=== PATIENT | male | born 1970 | race Caucasian/White ===

== ENCOUNTER → 2020-03-30 08:27 | Outpatient (CLI) | payer OTHER, SELFPAY ==
--- NOTE | 2020-03-30 | DI.MRI.S_ITS ---
PROCEDURE: MR SHOULDER LT WO CON INDICATIONS: LEFT SHOULDER PAIN TECHNIQUE: Noncontrast oblique coronal T2 fast spin echo with fat saturation, oblique sagittal T1 spin echo and T2 fast spin echo with fat saturation, axial T1 spin echo and T2 fast spin echo with fat saturation through the shoulder. COMPARISON: None. FINDINGS: Image quality: Excellent. Rotator cuff: Supraspinatus tendinopathy with small partial thickness bursal and articular sided tear. Infraspinatus and teres minor tendons appear intact. Subscapularis tendon appears intact. Mild diffuse fatty infiltration of the rotator cuff musculature. No atrophy identified. Bones and bursae: No bone marrow contusions or fractures. Moderate acromioclavicular joint degeneration. Acromion demonstrates conventional anatomy, without an os acromiale. Trace subacromial-subdeltoid bursitis. Capsule and soft tissues: Labrum: Blunted appearance of the posterior labrum likely reflecting advanced degeneration versus chronic tear. There is circumferential segmental sclerosis of the adjacent glenoid.. Long head of the biceps tendon intact. The rotator interval appears normal, without fibrosis. Coracohumeral ligament intact. IMPRESSION: Supraspinatus tendinopathy with small partial thickness bursal and articular sided tear at the critical zone. Blunted appearance of the posterior labrum, likely advanced degeneration and/or chronic tear. Dictated by: Oral Aguayo M.D. on 04/01/2020 at 10:03 Approved by: Oral Aguayo M.D. on 04/01/2020 at 10:24
== END ==
PROVIDERS: PCP Family Medicine; Referring Provider Family Medicine; Visit Provider Family Medicine
DX: M25.512 Pain in left shoulder (principal); M75.112 Incomplete rotator cuff tear or rupture of left shoulder, not specified as traumatic
CPT/HCPCS: 73221

== ENCOUNTER 2021-11-19 16:40 | Emergency (ER) | payer OTHER, SELFPAY ==
[2021-11-19] VITALS (10 sets, daily range): BP systolic 142–162; BP diastolic 66–96; PULSE 43–76; RESP 16–17; TEMP 35.9; O2SAT 96–99
[2021-11-19 19:47] LABS: Add Manual Diff / Slide Review NO; Basophils Absolute Auto 0 /uL (0-100); Basophils Percent Auto 0.5 % (0-2); Eosinophils Absolute Auto 300 /uL (0-450); Hematocrit 40.4 % (41-53); Hemoglobin 14.1 g/dL (13.5-17.5); Lymphocytes Absolute Auto 2000 /uL (1100-4500); Lymphocytes Percent Auto 26.2 % (25-40); Mean Corpuscular HGB Conc 34.9 % (30-36); Mean Corpuscular Hemoglobin 29.6 PG (26-34); Mean Corpuscular Volume 84.7 fL (80-100); Monocytes Absolute Auto 600 /uL (0-900); Monocytes Percent Auto 7.9 % (3-14); Neutrophils Absolute Auto 4600 /uL (1500-7000); Neutrophils Percent Auto 61.4 % (50-75); Platelet Count 285 X10^3/uL (150-400); Red Blood Cell Count 4.77 X10^6/uL (4.5-5.9); Red Cell Distribution Width 13.2 % (11.6-14.8); White Blood Cell Count 7.5 X10^3/uL (4.5-11.0)
[2021-11-19 19:50] LABS: Alanine Aminotransferase 584 IU/L (<50); Albumin 4.5 g/dL (3.5-5.0); Albumin Globulin Ratio 1.3 (1.0-2.8); Alkaline Phosphatase 94 U/L (38-126); Aspartate Aminotransferase 365 IU/L (17-59); BUN Creatinine Ratio 15.4 (6-22); Bilirubin Total 0.9 mg/dL (0.2-1.3); Blood Urea Nitrogen 12 mg/dL (9-20); Carbon Dioxide 31 mmol/L (22-32); Chloride 100 mmol/L (98-107); Estimated Glomerular Filt Rate > 60 mL/min (>60); Globulin 3.5 g/dL (1.7-4.1); Glucose 80 mg/dL (70-100); HEMOLYSIS < 15 (0-50); Lipase 84 U/L (23-300); Potassium 3.8 mmol/L (3.4-5.1); Sodium 140 mmol/L (137-145)
--- NOTE | 2021-11-19 19:59 | ED.GENADULT ---
HPI - General Adult General Chief complaint: Abdominal Pain Stated complaint: liver and pancreatic enzymes too high Time Seen by Provider: 11/19/21 19:54 Source: patient Mode of arrival: Ambulatory History of Present Illness HPI narrative: Otherwise healthy 51-year-old gentleman was working at his computer yesterday when he had the acute onset of epigastric pain at rest. It lasted for hours throughout the day. He notes that Tums offered brief relief, Tylenol helped, Gas-X provided no change. Over the course of the evening it improved enough that he was able to get some sleep with still hurting this morning was seen by provider the knee clinic. The workup done and he was told that his liver enzymes and pancreatic enzymes were elevated (access to these labs) and it was suggested he come to the ER for further evaluation. In the ER he reports continued mild epigastric/right upper quadrant pain without nausea, vomiting, diarrhea. He has no fevers, cough, chills, dyspnea. No palpitations or chest pain. He notes that he is never had gallbladder issues for cardiac issues previously. No history of reflux. Denies any recent black or bloody stools. Related Data Previous Rx's Medication Instructions Recorded oxycodone-acetaminophen 5 mg-325 1 tab PO Q6H PRN pain #10 tabs 11/19/21 mg tablet Allergies Allergy/AdvReac Type Severity Reaction Status Date / Time No Known Drug Allergies Allergy Verified 11/19/21 16:50 Review of Systems Review of Systems Narrative: Remainder of complete review of systems is otherwise unremarkable except for that included in the HPI. Patient History Social History Smoking Status: Never smoker Smoking Status: Never smoker alcohol intake frequency: other Substance Use Type: does not use Exam Initial Vital Signs Initial Vital Signs: Vital Signs Temperature 96.6 F L 11/19/21 16:48 Pulse Rate 76 11/19/21 16:48 Respiratory Rate 17 11/19/21 16:48 Blood Pressure 162/96 H 11/19/21 16:48 Pulse Oximetry 99 11/19/21 16:48 Oxygen Delivery Method 11/19/21 16:48 General: Healthy appearing, in no acute distress. Able to give a complete and coherent history. Well-nourished well-developed HEENT: Moist mucous membranes, normal sclera with reactive pupils, Neck: No JVD, supple Respiratory: Lungs are clear to auscultation, no wheezing no rales no rhonchi. Full and symmetrical air movement Cardiac: Regular rate and rhythm no murmurs no bruits Abdomen: Soft, mild tenderness in the right upper quadrant to epigastrium without rebound or guarding, good bowel tones, no flank pain Skin: Warm and dry, no rashes Neurologic: Grossly neurologically intact with no obvious asymmetries or abnormalities Extremities: No trauma, well perfused Psych: Cooperative, appropriate insight and affect Course Orders Ordered: ED Orders 11/19/21 16:50 EKG-12 Lead Stat 11/19/21 19:25 Complete Blood Count AUTO DIFF Stat Comprehensive Metabolic Panel Stat Lipase Stat Trop I [Troponin I] Stat 11/19/21 20:05 US abdomen limited Stat Vital Signs Vital signs: Vital Signs - 8 hr 11/19/21 16:48 11/19/21 19:53 11/19/21 19:55 Temperature 96.6 F L Pulse Rate 76 46 L 45 L Respiratory Rate 17 16 Blood Pressure 162/96 H 158/72 H Pulse Oximetry 99 98 97 Oxygen Delivery Method Room Air Room Air 11/19/21 20:00 11/19/21 20:30 Temperature Pulse Rate 48 L 43 L Respiratory Rate Blood Pressure Pulse Oximetry 96 97 Oxygen Delivery Method Medical Decision Making Lab Data Result diagrams: 11/19/21 19:25 11/19/21 19:25 Labs: Lab Results 11/19/21 11/19/21 11/19/21 Range/Units 19:25 19:25 19:25 WBC 7.5 (4.5-11.0) X10^3/uL RBC 4.77 (4.5-5.9) X10^6/uL Hgb 14.1 (13.5-17.5) g/dL Hct 40.4 L (41-53) % MCV 84.7 (80-100) fL MCH 29.6 (26-34) PG MCHC 34.9 (30-36) % RDW 13.2 (11.6-14.8) % Plt Count 285 (150-400) X10^3/uL Neut % (Auto) 61.4 (50-75) % Lymph % (Auto) 26.2 (25-40) % Randolph % (Auto) 7.9 (3-14) % Eos % (Auto) 4.0 (2-4) % Baso % (Auto) 0.5 (0-2) % Neut # (Auto) 4600 (0835-7971) /uL Lymph # (Auto) 2000 (7397-8962) /uL Randolph # (Auto) 600 (0-900) /uL Eos # (Auto) 300 (0-450) /uL Baso # (Auto) 0 (0-100) /uL Sodium 140 (137-145) mmol/L Potassium 3.8 (3.4-5.1) mmol/L Chloride 100 (98-107) mmol/L Carbon Dioxide 31 (22-32) mmol/L BUN 12 (9-20) mg/dL Creatinine 0.78 (0.66-1.25) mg/dL Estimated GFR > 60 (>60) mL/min BUN/Creatinine Ratio 15.4 (6-22) Glucose 80 (70-100) mg/dL Calcium 9.0 (8.4-10.2) mg/dL Total Bilirubin 0.9 (0.2-1.3) mg/dL AST 365 H (17-59) IU/L ALT 584 H (<50) IU/L Alkaline Phosphatase 94 (38-126) U/L Troponin I < 0.012 (0.01-0.034) ng/mL Total Protein 8.0 (6.3-8.2) g/dL Albumin 4.5 (3.5-5.0) g/dL Globulin 3.5 (1.7-4.1) g/dL Albumin/Globulin Ratio 1.3 (1.0-2.8) Lipase 84 (23-300) U/L Imaging Data US - abdomen: Radiologist's Impression: Initial tach impression: Gallbladder with stones, numerous nonobstructing tiny stones less than 2 mm. The wall is 2 mm there is no pericholecystic fluid and no sonographic Miller's sign. Biliary tree is within normal limits as is pancreas. ECG Data Interpretation: Sinus bradycardia rhythm at a rate of 42 Normal intervals, normal axis No acute ischemic changes MDM Narrative Medical decision making narrative: 51-year-old gentleman with right upper quadrant pain starting yesterday that is improving. Lab work this morning sounded a that numbers were higher than repeating ones this afternoon. He is essentially pain-free at this point there is no evidence of acute cholecystitis but he clearly does have cholelithiasis. Went over the difference with him. No evidence for alternative explanations such as choledocholithiasis, ascending cholangitis, bowel obstruction, gastric ulcer, pancreatic abnormalities or acute pancreatitis. Will refer him to [facility] for outpatient follow-up for cholelithiasis and will give him a small prescription of Percocet to use for any recurrent pain. Recommended as low fat a diet is he is able to tolerate and reviewed reasons to return to the emergency department including fever, uncontrolled pain or vomiting or any jaundice. He is safe for home discharge Discharge Plan Departure Patient Disposition: Home Clinical Impression: Cholelithiasis Qualifiers: Cholelithiasis location: gallbladder Cholecystitis presence: without cholecystitis Biliary obstruction: without biliary obstruction Qualified Code(s): K80.20 - Calculus of gallbladder without cholecystitis without obstruction Instructions: DI for Gallstones Activity Restrictions/Additional Instructions: Thank you for coming in today You have gallstones and I believe this is the cause of your pain. I suspect that you have passed one which is why you are feeling better in your blood work seems to be improving. At this point you do not have an acute infection and you do not need to be in the hospital. You may want to follow-up with our general surgery clinic to consider having her gallbladder removed electively as an outpatient. Please contact [facility] at [phone] to schedule an appointment for cholelithiasis and consideration of cholecystectomy. Using 400 mg of ibuprofen (2 fdql-kvq-fcymmyo pills) and 1 Tylenol every 6 hours can be very helpful in controlling pain. For severe pain you can use 400 mg of ibuprofen and 1 Percocet. If you develop fever, uncontrolled pain or vomiting or jaundice you do need to return to the emergency department Prescriptions: New oxycodone-acetaminophen 5-325 mg tablet 1 tab PO Q6H PRN (Reason: pain) Qty: 10 0RF Referrals: Karuna Joe DO [Primary Care Provider] -
--- NOTE | 2021-11-19 20:05 | DI.US.S_ITS ---
PROCEDURE: US ABDOMEN LIMITED INDICATIONS: RUQ PAIN; ABNORMAL LABS TECHNIQUE: Real-time focused scanning was performed of the abdomen, with image documentation. COMPARISON: None. FINDINGS: The liver is normal in size with increased echogenicity compatible with fatty infiltration. Numerous small echogenic shadowing gallstones which appear mobile are demonstrated in the gallbladder. No gallbladder wall thickening, pericholecystic fluid, or reported sonographic Miller's sign. No intra or extrahepatic biliary ductal dilatation. The visualized common bile duct measures up to 0.5 cm. The visualized pancreas appears unremarkable sonographically. IMPRESSION: 1. Cholelithiasis without definite evidence of cholecystitis. 2. No biliary ductal dilatation. 3. Increased hepatic echogenicity compatible with steatosis. Dictated by: Michael Varela M.D. on 11/19/2021 at 22:34 Approved by: Michael Varela M.D. on 11/19/2021 at 22:36
[2021-11-19 20:50] LABS: Troponin I < 0.012 ng/mL (0.01-0.034)
== END 2021-11-19 22:32 | disposition home or self-care (01) ==
PROVIDERS: Emergency Medicine; Emergency Provider Emergency Medicine; PCP Family Medicine
DX: K80.20 Calculus of gallbladder without cholecystitis without obstruction (principal)
CPT/HCPCS: 36415; 76705; 80053; 83690; 84484; 85025; 93005; 93010; 99284

== ENCOUNTER → 2022-01-13 09:03 | Outpatient (CLI) | payer OTHER, SELFPAY ==
[2022-01-13 10:19] LABS: COVID19 -Nasal RAPID Negative (Negative)
== END ==
PROVIDERS: PCP Family Medicine; Visit Provider Surgery
DX: Z20.822 Contact with and (suspected) exposure to COVID-19 (principal); Z01.812 Encounter for preprocedural laboratory examination
CPT/HCPCS: 87635; C9803

== ENCOUNTER 2022-01-14 06:41 | Day surgery (SDC) | payer OTHER, SELFPAY ==
[2022-01-05 15:14] VITALS: BMI 31.9
--- NOTE | 2022-01-14 | PATH_ITS ---
[facility] Accession Number: [id number] . 01 Material submitted: . gallbladder - GALLBLADDER AND CONTENTS . 01 Clinical history: . LAP RANDY . 01 Diagnosis: Gallbladder, Cholecystectomy: Chronic cholecystitis with focal adenomyomatous hyperplasia. Cholelithiasis. Negative for dysplasia and malignancy. MRV 01/16/2022 1137 Local . 01 Electronically signed: . Christine Bernstein MD, Pathologist NPI- [id number] . 01 Gross description: . Received in formalin labeled with the patient's name and gallbladder and contents consists of an intact gallbladder measuring 5.4 x 2.7 x 2.5 cm. The serosa is pink-alberto, wrinkled, and the hepatic surface is rough and unremarkable. The cystic duct is received closed with a clamp, is inked blue, and no pericystic lymph node is identified. Opening the specimen reveals the lumen to be filled with green viscous bile with no calculi identified. The mucosa is green and velvety with small pinpoint yellow areas consistent with cholesterol deposits. No polyps or lesions are identified. The ventura average 0.3 cm thick. [employer] sections to include the cystic duct margin and full-thickness sections are submitted in cassette A1. ([id number]) /MRV 01/15/2022 1541 Local . 01 Pathologist provided ICD-10: K80.50 . 01 CPT . 305119 Specimen Comment: A courtesy copy of this report has been sent to [phone] Performed at: 01 [facility] [address] [place] [address] [address] [facility], [place], [place] [id number] MD Michael Spencer MD Phone: [phone]
[2022-01-14 07:10] VITALS: BMI 32.5
[2022-01-14 07:25] VITALS: BP 135/77; PULSE 55; RESP 18; TEMP 36.9; O2SAT 97
--- NOTE | 2022-01-14 07:31 | PM.HP.1 ---
History of Present Illness History of Present Illness Date Patient Seen: 01/14/22 Chief complaint: Lap Olga Narrative: 51-year-old man here for elective cholecystectomy secondary to biliary colic. No interval changes in health. Please refer to the H& P from November 2021 for further detail Patient History Medical History COVID-19 virus infection (11/03/21) Gallstones Surgical History History of surgery (~1993) History of surgery (~1993) Family & Social History Family History Father Hypertension Grandmother Heart disease Mother Stroke Brother Leukemia Social History: household members spouse,family lives independently Yes Tobacco & Substance use: Smoking Status Never smoker alcohol intake never alcohol intake frequency other Substance Use Type does not use Meds Home Medications and Allergies Home Medications Medication Instructions Recorded Confirmed Type No Known Home Medications 01/14/22 01/14/22 History Allergies Allergy/AdvReac Type Severity Reaction Status Date / Time No Known Drug Allergies Allergy Verified 01/14/22 07:09 Exam Vital Signs (past 8 hours): - 01/14/22 07:25 Temperature 98.5 F Pulse Rate 55 L Respiratory Rate 18 Blood Pressure 135/77 Pulse Oximetry 97 Oxygen Delivery Method Room Air Oxygen Delivery Method Room Air Narrative Exam Narrative: General adult male alert oriented no acute distress Chest nonlabored respiration Abdomen soft nontender nondistended Assessment & Plan Assessment and plan (1) Biliary colic: Status: Acute Assessment & Plan narrative: 51-year-old man with symptoms and radiographic findings consistent biliary colic here for elective cholecystectomy. We again reviewed the operation and its associated risks bleeding, infection, damage to surrounding structures, bile leak, anesthetic complication and . His questions have been answered and he is in agreement with this plan. Time Spent With Patient Critical Care time: I spent a total of [] minutes of critical care time on this patient's care today; this time is exclusive of procedural time.
[2022-01-14] MEDS: LACTATED RINGERS 1,000 ML 100 ML IV (07:32)
[2022-01-14] MEDS: CEFAZOLIN 2 GM/100 ML PREMIX 100 ML IV (07:55)
[2022-01-14] MEDS: BUPIVACAINE 0.25% (PF) VIAL 30 ML INJ (08:11)
--- NOTE | 2022-01-14 08:12 | SUR.OPER ---
Supine on padded OR bed, head on pillow, safety belt at thigh, left arm padded and tucked at side. Right arm secured on padded arm board <90 degrees abduction. Legs uncrossed. Padded footboard in place.
[2022-01-14 09:03] VITALS: BP 129/64; PULSE 70; RESP 18; TEMP 36.7; O2SAT 97
--- NOTE | 2022-01-14 09:07 | P.OP_ITS ---
Operative Date/Time/Diagnoses Date of procedure: 01/14/22 Time of procedure: 09:07 Pre-op diagnosis: biliary colic Post-op diagnosis: same Procedure & Clinicians Procedure: Laparoscopic cholecystectomy Same procedure as scheduled: Yes Indications: Symptoms and radiographic findings consistent with biliary colic Surgeon: Travis Wooten Click Yes if Unassisted: Yes Anesthesia Type: General Operative Notes Findings: Critical view of safety established.No acute cholecystitis Specimen(s): other (gallbladder) Estimated Blood Loss (mL): 20 Procedure in detail: The patient was placed supine on the table and bilateral lower extremity compression devices were applied. Anesthesia was induced they were intubated with an endotracheal tube and received 2g of Ancef. A time-out was performed. They were prepped and draped in sterile fashion. An infraumbilical incision was made, the umbilical stalk was elevated and the fascia was sharply incised entering the abdomen atraumatically. A blunt tip 12mm balloon trocar was then inserted, pneumoperitoneum was established and inspection of the abdomen demo nstrated no evidence of injury. They were placed head up and right side up and then a 11 mm port was placed high in the epigastrium and two 5mm in the right upper quadrant. The gallbladder was grasped by the fundus and retracted over the liver and retracted laterally by the infundibulum. There were some chronic adhesions to the gallbladder that were taken down. Using electrocautery the lateral plane between the gallbladder and the liver was opened towards the fundus. The gallbladder was then retracted laterally and the medial plane was developed in the same manner. With the gallbladder mobilized the bottom of the cystic plate was visualized. The hepatocystic triangle was meticulosly skeletonized of all fat and fibrous tissue from both the front and the back. Only two structures were then clearly seen entering the gallbladder the cystic duct and the cystic artery. With the critical view of safety fully established the cystic duct was clipped twice proximally and once distally using the 10 mm Weck hemo clip applied under direct visualization and then sharply divided. The cystic artery was divided in the same fashion. I was not satisfied that the clips on the cystic duct were entirely across the duct and there for a PDS endoloop was placed directly inferior to the clips. The gallbladder was removed from the liver bed using electro cautery. The liver bed was then inspected for hemostasis and this was achieved. The abdomen was irrigated with sterile saline and inspection was made that showed the clips and the endoloop in good position. The specimen was removed using Endo-Catch. The abdomen was desufflated. The umbilical fascia was closed with 0 Vicryl in a [id number] fashion under direct visualization. Skin incisions were irrigated and closed with 4-0 Mon ocryl. 30 ml of 0.25% bupivacaine was infiltrated into the subcutaneous tissue of the incisions. The wounds were sealed with Dermabond. Patient emerged from anesthesia was extubated and transferred to recovery in stable condition. The sponge and instrument count at the end of the operation was correct. Complications: none Post-operative Condition: stable Disposition: same day surgery
[2022-01-14 09:08] VITALS: BP 135/77; PULSE 76; RESP 16; O2SAT 97
[2022-01-14 09:13] VITALS: BP 117/68; PULSE 54; RESP 17; TEMP 36.3; O2SAT 97
[2022-01-14] MEDS: HYDROMORPHONE 2 MG INJ IV ×2 (09:13→09:23)
[2022-01-14] MEDS: OXYCODONE IR 5 MG TABLET PO ×2 (09:15→09:39)
[2022-01-14 09:24] VITALS: BP 135/79; PULSE 64; RESP 15; TEMP 36.3; O2SAT 98
[2022-01-14 09:36] VITALS: BP 138/78; PULSE 64; RESP 15; TEMP 36.3; O2SAT 98
--- NOTE | 2022-01-14 09:46 | SUR.PHASEII ---
discharge instructions reviewed with pt and he verbalized understanding.
== END 2022-01-14 09:58 | disposition home or self-care (01) ==
PROVIDERS: PCP Family Medicine; Referring Provider Surgery; Visit Provider Surgery
PROC: 0FT44ZZ Resection of Gallbladder, Percutaneous Endoscopic Approach (ICD-10-PCS; CPT 47562; principal; 2022-01-14 07:45)
DX: K80.10 Calculus of gallbladder with chronic cholecystitis without obstruction (principal)
CPT/HCPCS: 47562; 82962; J0690; J1100; J1170; J1885; J2250; J2405; J2704; J3010; J3490

== ENCOUNTER → 2022-06-06 13:14 | Outpatient (CLI) | payer OTHER, SELFPAY ==
--- NOTE | 2022-06-06 13:15 | DI.MRI.S_ITS ---
PROCEDURE: MR LUMBAR SPINE WO CON INDICATIONS: Radiculopathy, lumbar region TECHNIQUE: Noncontrast sagittal T1 spin echo and T2 fast echo, sagittal STIR, and T2 fast spin echo through the lumbar spine. In cases with scoliosis, additional coronal T2 fast spin echo may be performed. COMPARISON: None. FINDINGS: Image quality: Excellent. Alignment and Curvature: Trace degenerative retrolisthesis of L5 on S1. Bone Marrow: Marrow is of normal overall signal. No acute vertebral body compression fractures. Spinal Cord: Conus medullaris terminates at the L1 level. Visualized cord demonstrates normal signal and size. Paraspinous Soft Tissues: No paravertebral masses. T12-L1: Minimal disc bulge. No canal stenosis or foraminal stenosis. L1-L2: Mild disc bulge. Mild facet hypertrophy. No canal stenosis or foraminal stenosis. L2-L3: Minimal disc bulge. Mild facet hypertrophy. Mild bilateral foraminal narrowing. No canal stenosis. L3-L4: Disc bulge. Mild facet hypertrophy. No canal stenosis. Mild left foraminal stenosis. L4-L5: Disc bulge. Facet hypertrophy. Mild canal stenosis. Mild bilateral foraminal stenosis. L5-S1: Trace degenerative retrolisthesis of L5 on S1. Disc bulge. Facet hypertrophy. Disc material abuts the bilateral S1 nerve roots in the lateral recesses. There is borderline canal stenosis. There is dfiq-li-vtifuwop bilateral foraminal stenosis. IMPRESSION: 1. Mild multilevel facet arthropathy. 2. There is mild canal stenosis at L4-L5 and borderline canal stenosis at L5-S1. Dictated by: Jonnathan Britton M.D. on 06/08/2022 at 8:12 Approved by: Jonnathan Britton M.D. on 06/08/2022 at 8:16
== END ==
PROVIDERS: PCP Family Medicine; Referring Provider Family Medicine; Visit Provider Family Medicine
DX: M47.26 Other spondylosis with radiculopathy, lumbar region (principal); M47.27 Other spondylosis with radiculopathy, lumbosacral region; M51.16 Intervertebral disc disorders with radiculopathy, lumbar region; M48.061 Spinal stenosis, lumbar region without neurogenic claudication; M54.50 Low back pain, unspecified
CPT/HCPCS: 72148